=== PATIENT | female | born 1960 | race Caucasian/White ===

== ENCOUNTER → 2016-12-22 16:43 | Outpatient (CLI) | payer BC | END | disposition home or self-care (01) | LOC: D.MAMMO 08:00 | DX: Z12.31 Encounter for screening mammogram for malignant neoplasm of breast (principal) ==

== ENCOUNTER 2018-07-25 10:11 | Day surgery (SDC) | payer BC ==
[~2018-07-25] VITALS: Ht 160 cm; Wt 165.5 kg
--- NOTE | ~2018-07-25 | OP ---
PATIENT NAME: OMID RUCKER MEDICAL RECORD: [id number] :64 LOCATION:[facility] ADMISSION DATE: SURGEON: LOREN RENEE MD DATE OF OPERATION: 07/25/2018 PROCEDURE: Colonoscopy. REFERRING PHYSICIAN: Dr. Sandy Bray. INDICATIONS: Ms. Rucker is a delightful 57-year-old woman referred by Dr. Bray for screening colonoscopy. She has had a positive Cologuard testing. She has a family history of colon cancer (mother) has had symptoms of hematochezia. She presents for outpatient colonoscopy. PREMEDICATIONS: Total IV anesthesia (BMI 65) propofol 250 mg. INSTRUMENT: Olympus video colonoscope, pediatric. PROCEDURE AND FINDINGS: After receiving informed consent, Ms. Rucker was placed in left lateral decubitus position and sedated as per anesthesia. After achieving adequate level of sedation, digital rectal was performed that showed no external hemorrhoidal tags, fissures or fistulas, normal sphincter tone, no palpable rectal masses. Colonoscope was introduced per rectally and advanced to the cecum without difficulty. The cecum, IC valve, and appendiceal orifice were identified and appeared normal. As the colonoscope was withdrawn, careful inspection was made of the henry of the colon. Overall mucosa had normal vascular and fold pattern. There are multiple diverticula seen in the sigmoid colon. Retroflexion in rectum showed mild internal hemorrhoids. A fair to good prep was present. Ms. Rucker tolerated the procedure well, no immediate complications. ASSESSMENT: 1. Mild sigmoid diverticulosis coli. 2. Mild internal hemorrhoids (source of hematochezia). 3. Family history of colon cancer. RECOMMENDATIONS: 1. High fiber diet. 2. Screening colonoscopy in 5 years. TRANSINT:[id number] Voice Confirmation ID: [id number] DOCUMENT ID: [id number] LOREN RENEE MD at 1828 CC: SANDY BRAY [id number] DICTATION DATE: 07/25/18 1311 [facility]UMBER: 07/25/18 1322 [facility] 07/25/18 [place] [address]
[2018-07-25 10:55] LABS: HEMATOCRIT 43.5 % (36.0-48.0); HEMOGLOBIN 14.2 g/dL (12-16); MCH 28.9 pg (26.0-34.0); MCHC 32.6 g/dL (31.0-37.0); MCV 88.6 fL (80.0-100.0); MEAN PLATELET VOLUME 9.9 fL (7.4-10.4); RBC 4.91 10x6/uL (4.00-5.40); RDW 14.8 % (11.5-14.5); WBC 11.3 10x3/uL (4.8-10.8)
[2018-07-25 11:08] LABS: ANION GAP 14.6 mmol/L (8-16); CALCIUM 9.8 mg/dL (8.5-10.1); CARBON DIOXIDE 28.5 mmol/L (21.0-32.0); CREATININE - SERUM 0.9 mg/dL (0.6-1.3); POTASSIUM - SERUM 4.1 mmol/L (3.5-5.1)
[2018-07-25] MEDS ORDERED: K-TAB10 MEQ PO (11:29)
[2018-07-25] MEDS ORDERED: FUROSEMIDE20 MG PO (11:29)
[2018-07-25] MEDS ORDERED: ZIAC 10-6.25 MG1 TAB PO (11:29)
[2018-07-25] MEDS ORDERED: LODINE500 MG PO (11:30)
[2018-07-25] MEDS ORDERED: GLUCOPHAGE500 MG PO (11:30)
[2018-07-25] MEDS ORDERED: ZOLOFT100 MG PO (11:31)
[2018-07-25] MEDS ORDERED: ACETAMINOPHEN500 M1 PO (11:32)
[2018-07-25] MEDS ORDERED: FAMOTIDINE10 MG (11:33)
[2018-07-25] MEDS ORDERED: PEPCID40 MG (11:33)
[2018-07-25 11:50] VITALS: BP 140/62; Ht 160 cm; Wt 165.5 kg
== END 2018-07-25 14:09 | disposition home or self-care (01) ==
LOC: D.OPS 10:11
PROVIDERS: Anesthesiology
DX: Z12.11 Encounter for screening for malignant neoplasm of colon (principal); K57.30 Diverticulosis of large intestine without perforation or abscess without bleeding; K64.8 Other hemorrhoids; Z80.0 Family history of malignant neoplasm of digestive organs; Z01.812 Encounter for preprocedural laboratory examination